=== PATIENT | female | born 1985 | race Caucasian/White ===

== ENCOUNTER 2017-07-24 15:49 | Emergency (ER) | payer SELFPAY ==
[2017-07-24 15:49] VITALS: BMI 32.3
--- NOTE | 2017-07-24 16:25 | C.PDOC ---
History Of Present Illness 32 y/o female presents to ED with complaints of bilateral facial swelling. Patient was seen at [facility] on 07/22 -07/23 claiming that she fell and when getting up rolled over to small nail sustaining puncture wound to left anticubidal area. Patient had extensive evaluation including ct scan of head, maxofacial, left shoulder, knee, ultrasound of left arm. Patient was admitted but left AMA and was positive for Amphetamines, opiates and cabanoids. [place] CARDIOPULMONARY TECHNOLOGIST showed extensive regiments of percocet, oxycodone and Ativan but patient states "I ran out". Patient has not follow up with chronic pain specialist, No other complaints at this time. Time Seen by Provider: 07/24/17 16:03 Chief Complaint (Nursing): Eye Problem History Per: Patient History/Exam Limitations: no limitations Onset/Duration Of Symptoms: Days Current Symptoms Are (Timing): Still Present Past Medical History Reviewed: Historical Data, Nursing Documentation, Vital Signs Vital Signs: Last Vital Signs Temp 97.4 F L 07/24/17 16:55 Pulse 88 07/24/17 16:55 Resp 18 07/24/17 16:55 BP 134/90 07/24/17 16:55 Pulse Ox 99 07/24/17 16:55 - Medical History PMH: Anxiety, Back Problems (chronic), Fibromyalgia, Fractures (left shoulder), Chronic Pain Surgical History: No Surg Hx - [facility] Procedures EXTRACTION OF PRODUCTS OF CONCEPTION, RETAINED, VIA OPENING (07/09/15) Family History: States: No Known Family Hx - Social History Hx Tobacco Use: Yes Hx Alcohol Use: No Hx Substance Use: No - Immunization History Hx Tetanus Toxoid Vaccination: No Hx Influenza Vaccination: No Hx Pneumococcal Vaccination: No Review Of Systems Constitutional: Negative for: Fever, Chills Eyes: Positive for: Eyelid Inflammation. Negative for: Vision Change Cardiovascular: Negative for: Chest Pain Respiratory: Negative for: Shortness of Breath Gastrointestinal: Negative for: Nausea, Vomiting Skin: Negative for: Rash Neurological: Negative for: Weakness, Numbness Physical Exam - Physical Exam Appears: Non-toxic, No Acute Distress Skin: Warm, Dry, No Rash Head: Atraumatic, Normacephalic, Other (bialterial periorbital swelling (-) celulitis) Eye(s): bilateral: Normal Inspection, PERRL, EOMI Oral Mucosa: Moist Neck: Normal ROM, Supple Chest: Symmetrical Cardiovascular: Rhythm Regular Respiratory: Normal Breath Sounds, No Rales, No Rhonchi, No Wheezing Extremity: No Tenderness, No Deformity, Other (left anticubidal bandage for superficial wound (-)celulitis (-)drainage) Pulses: Left Radial: Normal, Right Radial: Normal Neurological/Psych: Oriented x3, Normal Motor, Normal Sensation ED Course And Treatment O2 Sat by Pulse Oximetry: 100 (RA) Pulse Ox Interpretation: Normal Medical Decision Making Medical Decision Making: acute on chronic pain issues fall w facial contusion night of 07/22- complete eval of L arm with US for small puncture wound, head/max face and labs all neg 07/23 U-tox + for amphetamines, opiates and cannabanoids [place] CARDIOPULMONARY TECHNOLOGIST reviewed, pt with extensive regimen for chronic back pain : Percocet 10-325 mg x#90 last filled 06/20 Oxycodone 30 mg #90 last filled 06/20 Alprazolam 2 mg #30 last filled 06/20 Considering pt is + for amphatamines and NOT positive for Benzos (as prescribed ) and + cannabanoids, this pattern is highly suspicious for diversion or abuse and polypharmacy. Demanding refills of extensive narcotics regimen, though pt understands they have a pain contract and may NOT seek refills of chronic pain meds from other than their Chronic pain Specialist. Pt claims to be lost to f/u with same due to difficulty arranging transportation to visit their offices in [facility] for the past 3 weeks. 1600: Call to primary Pain Mgmt Doctor- Jelena Marino @ [phone], left VM, pending call back Patient demanding refill of narcotics for pain, but understand refill by ER is violation to chronic pain contract Disposition Doctor Will See Patient In The: Office Counseled Patient/Family Regarding: Studies Performed, Diagnosis - Disposition Referrals: Manjula Sam MD [Medical Doctor] - Disposition: HOME/ ROUTINE Disposition Time: 16:36 Condition: GOOD Additional Instructions: continue ice packs to the face 1/2 hour per hour, nothing hot Continue Motrin 400-600 mg every 6 hours as needed for swelling (if you are NOT allergic, since you listed ibuprofen as an allergy in the ED) Follow-up w your Chronic Pain Management doctor for refills of your chronic pain meds. Forms: [employer] (Kittitian) - Clinical Impression Clinical Impression: Facial contusion, Drug-seeking behavior, Chronic pain disorder - Scribe Statement The provider has reviewed the documentation as recorded by the Edu Rdz All medical record entries made by the Sherrillibbrendan were at my direction and personally dictated by me. I have reviewed the chart and agree that the record accurately reflects my personal performance of the history, physical exam, medical decision making, and the department course for this patient. I have also personally directed, reviewed, and agree with the discharge instructions and disposition.
[2017-07-24 16:56] VITALS: BP 134/90; PULSE 88; RESP 18; TEMP 97.4
[2017-07-24 21:50] VITALS: O2SAT 100
== END 2017-07-24 16:56 | disposition home or self-care (01) ==
LOC: C.ER 15:49
DX: S00.83XD Contusion of other part of head, subsequent encounter (principal); W18.30XD Fall on same level, unspecified, subsequent encounter; Z76.5 Malingerer [conscious simulation]; G89.29 Other chronic pain

== ENCOUNTER 2017-12-18 14:45 | Emergency (ER) | payer MEDICAID ==
[2017-12-18 15:11] VITALS: BMI 29.8
--- NOTE | 2017-12-18 15:55 | C.PDOC ---
History Of Present Illness 32-year-old female, PMHx includes Anxiety, Back Problems (chronic), Fibromyalgia , Fractures (left shoulder), and Chronic Pain, presents to the emergency department with complaints of new onset leg swelling bilaterally, since last night. Patient reports increasing pain and a burning sensation. She denies nausea/vomiting, recent travel, shortness of breath, prior Hx of similar, chest pain or any other associated symptoms. No other complaints at this time. Time Seen by Provider: 12/18/17 15:19 Chief Complaint (Nursing): Lower Extremity Problem/Injury History Per: Patient History/Exam Limitations: no limitations Past Medical History Reviewed: Historical Data, Nursing Documentation, Vital Signs Vital Signs: Last Vital Signs Temp 98.1 F 12/18/17 18:24 Pulse 74 12/18/17 18:24 Resp 18 12/18/17 18:24 BP 122/83 12/18/17 18:24 Pulse Ox 100 12/18/17 19:08 - Medical History PMH: Anxiety, Back Problems (chronic), Fibromyalgia, Fractures (left shoulder), Chronic Pain - [facility] Procedures EXTRACTION OF PRODUCTS OF CONCEPTION, RETAINED, VIA OPENING (07/09/15) Family History: States: No Known Family Hx - Social History Hx Tobacco Use: Yes Hx Alcohol Use: No Hx Substance Use: No - Immunization History Hx Tetanus Toxoid Vaccination: No Hx Influenza Vaccination: No Hx Pneumococcal Vaccination: No Review Of Systems Constitutional: Negative for: Fever Cardiovascular: Negative for: Chest Pain, Palpitations Respiratory: Negative for: Shortness of Breath Gastrointestinal: Negative for: Vomiting Musculoskeletal: Positive for: Leg Pain (+swelling B/L) Neurological: Negative for: Weakness, Numbness Physical Exam - Physical Exam Appears: Non-toxic, No Acute Distress Skin: Normal Color, Warm, Dry, No Rash Head: Normacephalic Eye(s): bilateral: PERRL Nose: Normal Oral Mucosa: Moist Tongue: Normal Appearing Lips: Normal Appearing Throat: No Erythema, No Exudate, No Drooling, No Mass Neck: Normal ROM Cardiovascular: Rhythm Regular, No Murmur Respiratory: Normal Breath Sounds, No Accessory Muscle Use Gastrointestinal/Abdominal: Soft, No Tenderness Extremity: Tenderness (B/L lower extremities), Pedal Edema (2+), No Deformity Pulses: Left Dorsalis Pedis: Normal, Right Dorsalis Pedis: Normal Neurological/Psych: Oriented x3, Normal Speech ED Course And Treatment - Laboratory Results Result Diagrams: 12/18/17 17:43 12/18/17 17:43 O2 Sat by Pulse Oximetry: 100 (RA) Pulse Ox Interpretation: Normal Medical Decision Making Medical Decision Making: Plan: * BNP, CMP * CBC, D-Dimer * Chest X-Ray * Tylenol, Ultram * HCG/UA The patient is asking pain medication at bedside and requesting Narcotics. [employer] prescription monitoring system checked and patient received oxycodone every month. The case was discussed with Dr. Martinez who agrees patient is not likely to have DVT or cellulitis with bilateral edema. Labs are normal. On re- exam, the patient reports improvement of symptoms. Ambulatory in the ED with steady gait. Disposition - Disposition Referrals: [facility] [Outside] Disposition: HOME/ ROUTINE Disposition Time: 19:07 Condition: FAIR Additional Instructions: Follow up with the medical doctor within 1-2 days. REturn if worsened. Prescriptions: Acetaminophen [Tylenol] 325 mg PO Q6 PRN #30 tab PRN Reason: Pain, Moderate (4-7) Instructions: Dependent Edema (DC) Forms: [email or web address] (Amharic) - Clinical Impression Clinical Impression: Leg edema - Scribe Statement The provider has reviewed the documentation as recorded by the Scribe (Chani Mejias) All medical record entries made by the Scribe were at my direction and personally dictated by me. I have reviewed the chart and agree that the record accurately reflects my personal performance of the history, physical exam, medical decision making, and the department course for this patient. I have also personally directed, reviewed, and agree with the discharge instructions and disposition.
[2017-12-18 17:19] LABS: HCG,QUALITATIVE URINE NEGATIVE (NEGATIVE)
[2017-12-18 17:26] LABS: SQUAMOUS EPITHIAL 6 /hpf (0-5); URINE BILIRUBIN NEGATIVE (NEGATIVE); URINE BLOOD NEGATIVE (NEGATIVE); URINE CLARITY Clear (Clear); URINE COLOR Yellow (YELLOW); URINE GLUCOSE (UA) NORMAL (Normal); URINE LEUKOCYTE ESTERASE TRACE Leu/uL (Negative); URINE PROTEIN NEGATIVE (NEGATIVE); URINE UROBILINOGEN NORMAL mg/dL (0.2-1.0)
[2017-12-18 17:46] LABS: BASO # 0.1 K/uL (0.0-0.2); EOS # 0.2 K/uL (0.0-0.7); EOS % 3.7 % (0.0-4.0); HEMOGLOBIN 11.6 g/dL (11.0-16.0); LYMPH # 1.7 K/uL (1.0-4.3); LYMPH % 29.7 % (20.0-40.0); MEAN CELL VOLUME 92.4 fL (81.0-99.0); MEAN CORPUSCULAR HEMOGLOBIN 30.4 pg (27.0-31.0); MEAN CORPUSCULAR HGB CONC 32.9 g/dL (33.0-37.0); MEAN PLATELET VOLUME 8.1 fL (7.2-11.7); MONO # 0.6 K/uL (0.0-0.8); MONO % 9.5 % (0.0-10.0); NEUT # 3.3 K/uL (1.8-7.0); NEUT % 56.1 % (50.0-75.0); NRBC % 0.3 % (0.0-2.0); RBC 3.81 Mil/uL (3.80-5.20); RED CELL DISTRIBUTION WIDTH 14.9 % (11.5-14.5); WHITE BLOOD COUNT 5.8 K/uL (4.8-10.8)
[2017-12-18 17:58] LABS: ALB/GLOB RATIO 0.9 (1.0-2.1); ALBUMIN 3.9 g/dL (3.5-5.0); CALCIUM 8.6 mg/dl (8.6-10.4); GFR AFRICAN-AMERICAN > 60; GFR NON-AFRICAN AMERICAN > 60
[2017-12-18 18:05] LABS: ALT/SGPT 21 U/L (9-52); AST/SGOT 43 U/L (14-36); BLOOD UREA NITROGEN 10 mg/dL (7-17)
[2017-12-18] MEDS ORDERED: Albuterol-Ipratrop 3 mg / 0.5 (3 ml) UD IH SCH (18:45)
[2017-12-18] MEDS ORDERED: Oxycodone/Acetaminophen 5/325 mg Tab PO STA (18:53)
--- NOTE | 2017-12-18 18:55 | RAD ---
PROCEDURE: CHEST RADIOGRAPH, 1 VIEW HISTORY: leg edema COMPARISON: None available. FINDINGS: LUNGS: Clear. PLEURA: No pneumothorax or pleural fluid seen. CARDIOVASCULAR: No radiographic findings to suggest acute or significant cardiovascular disease. OSSEOUS STRUCTURES: No significant abnormalities. VISUALIZED UPPER ABDOMEN: Normal. OTHER FINDINGS: None. IMPRESSION: No active disease.
[2017-12-18] MEDS ORDERED: Oxycodone/Acetaminophen 5/325 mg Tab ONE ×2 (19:28→19:30)
[2017-12-18 19:37] VITALS: BP 124/80; PULSE 70; RESP 16; TEMP 98.5; O2SAT 98
== END 2017-12-18 19:37 | disposition home or self-care (01) ==
LOC: C.ER 14:45
DX: R60.0 Localized edema (principal)